=== PATIENT | female | born 1995 | race Two or more races ===

== ENCOUNTER 2019-11-18 12:26 | Outpatient (CLI) | payer OTHER | END 2019-11-18 15:00 | disposition home or self-care (01) | LOC: LAB SALUS 12:26 | DX: Z13.1 Encounter for screening for diabetes mellitus (principal); Z11.4 Encounter for screening for human immunodeficiency virus [HIV]; Z72.51 High risk heterosexual behavior; Z11.3 Encounter for screening for infections with a predominantly sexual mode of transmission ==

== ENCOUNTER 2019-11-25 14:41 | Emergency (ER) | payer OTHER ==
[~2019-11-25] VITALS: Ht 154.9 cm; Wt 55.8 kg
== END 2019-11-25 21:29 | disposition home or self-care (01) ==
LOC: ER 14:41
DX: O20.0 Threatened abortion (principal)

== ENCOUNTER 2019-12-01 03:06 | Emergency (ER) | payer OTHER ==
[~2019-12-01] VITALS: Ht 170.2 cm; Wt 59.0 kg
== END 2019-12-01 07:14 | disposition home or self-care (01) ==
LOC: ER 03:06
DX: O03.6 Delayed or excessive hemorrhage following complete or unspecified spontaneous abortion (principal); O03.89 Complete or unspecified spontaneous abortion with other complications

== ENCOUNTER 2020-01-20 10:26 | Outpatient (CLI) | payer OTHER | END 2020-01-20 12:53 | disposition home or self-care (01) | LOC: SONOGRAMA 10:26 | DX: Z12.31 Encounter for screening mammogram for malignant neoplasm of breast (principal); Z87.898 Personal history of other specified conditions; N63.41 Unspecified lump in right breast, subareolar ==

== ENCOUNTER 2020-12-20 23:32 | Emergency (ER) | payer OTHER ==
[~2020-12-20] VITALS: Ht 154.9 cm; Wt 57.6 kg
[2020-12-21] MEDS ORDERED: CEFUROXIME500 MG PO (03:03)
== END 2020-12-21 03:28 | disposition home or self-care (01) ==
LOC: ER 23:32
DX: O46.8X1 Other antepartum hemorrhage, first trimester (principal); O23.31 Infections of other parts of urinary tract in pregnancy, first trimester; Z3A.13 13 weeks gestation of pregnancy; Z03.818 Encounter for observation for suspected exposure to other biological agents ruled out